=== PATIENT | male | born 1945 | race Caucasian/White ===

== ENCOUNTER 2022-02-13 16:52 | Observation (INO) ==
[2022-02-13 17:40] LABS: Basophils % 0.3 %; Eosinophils % 0.3 %; Hematocrit 32.7 % (37.5-50.1); Hemoglobin 10.6 g/dL (12.9-16.9); Immature Granulocytes % 0.3 % (0-4); Lymphocytes # 0.7 K/mcL (0.6-4.6); Mean Corpuscular HGB Conc 32.4 g/dL (31.6-35.5); Mean Corpuscular Volume 86.3 fL (83.0-100.0); Mean Platelet Volume 9.3 fL (9.4-12.4); Monocytes # 0.9 K/mcL (0.0-1.3); Neutrophils # 6.3 K/mcL (1.6-8.9); Platelet Count 216 K/mcL (140-400); Red Blood Count 3.79 M/mcL (4.19-5.50); Red Cell Distribution Width 14.7 % (11.5-14.5); Segmented Neutrophils % 79.1 %
[2022-02-13] MEDS ORDERED: Naloxone 0.4 MG/ML INJ IVP PRN (17:44)
[2022-02-13] MEDS ORDERED: Ondansetron 4 MG/2 ML VIAL IVP PRN (17:44)
[2022-02-13] MEDS ORDERED: D5% in Water 1,000 ML IVC PRN (17:44)
[2022-02-13] MEDS ORDERED: Dextrose 4 GM Chewable Tablets PO PRN ×2 (17:44)
[2022-02-13] MEDS ORDERED: Acetaminophen 325 MG TABLET PO PRN (17:44)
[2022-02-13 17:55] LABS: Albumin 3.4 g/dL (3.5-5.7); Albumin/Globulin Ratio 1.3 (1.1-2.2); Bilirubin,Direct 0.2 mg/dL (0.0-0.2); Bilirubin,Indirect 0.5 mg/dL (0.0-1.0); Bilirubin,Total 0.7 mg/dL (0.3-1.0); Calcium 8.3 mg/dL (8.6-10.3); Globulin 2.6 g/dL (2.4-3.5); Potassium 3.5 mEq/L (3.5-5.1)
[2022-02-13] MEDS: *HR* Dextrose 50 % in Water (Syg) 50 ML SYRINGE IVP PRN ×2 (18:14→23:43)
[2022-02-13] MEDS: *HR* Ticagrelor 90 MG TABLET PO SCH (21:26)
[2022-02-13] MEDS: Metoprolol 100 MG TABLET PO SCH (21:26)
[2022-02-13] MEDS: tiZANidine 4 MG TABLET PO SCH (21:26)
[2022-02-13] MEDS: metroNIDAZOLE 500 MG TABLET PO SCH (21:26)
[2022-02-14] MEDS ORDERED: D10% in Water 500 ML IVC SCH (02:45)
[2022-02-14 07:46] VITALS: TEMP 98.2
[2022-02-14 08:01] LABS: Hematocrit 30.6 % (37.5-50.1); Hemoglobin 9.6 g/dL (12.9-16.9); Mean Corpuscular HGB Conc 31.4 g/dL (31.6-35.5); Mean Corpuscular Hemoglobin 27.3 pg (28.0-33.3); Mean Corpuscular Volume 86.9 fL (83.0-100.0); Mean Platelet Volume 9.4 fL (9.4-12.4); Platelet Count 220 K/mcL (140-400); Red Blood Count 3.52 M/mcL (4.19-5.50); Red Cell Distribution Width 14.8 % (11.5-14.5); White Blood Count 10.4 K/mcL (4.3-11.1)
[2022-02-14] MEDS: Metoprolol 100 MG TABLET PO SCH (08:03)
[2022-02-14 08:18] LABS: Calcium 7.9 mg/dL (8.6-10.3); Magnesium 1.9 mg/dL (1.6-2.6); Potassium 3.5 mEq/L (3.5-5.1)
[2022-02-14] MEDS ORDERED: hydroCHLOROthiazide 25 MG TABLET PO SCH (09:00)
[2022-02-14] MEDS ORDERED: Aspirin Enteric Coated 81 MG Tablet PO SCH (09:00)
[2022-02-14] MEDS ORDERED: lisinopriL 10 MG TABLET PO SCH (09:00)
[2022-02-14] MEDS ORDERED: amLODIPine 5 MG TABLET PO SCH (09:00)
[2022-02-14 10:12] VITALS: PULSE 56
[2022-02-14] MEDS: *HR* Ticagrelor 90 MG TABLET PO SCH (10:16)
[2022-02-14] MEDS: tiZANidine 4 MG TABLET PO SCH ×2 (10:17→14:38)
[2022-02-14] MEDS: metroNIDAZOLE 500 MG TABLET PO SCH (10:17)
[2022-02-14 12:00] VITALS: BP 130/59; RESP 20; O2SAT 98
== END 2022-02-14 15:15 | disposition home or self-care (01) ==
LOC: EMEROOPIK 16:52 → INPPIK 16:52
PROVIDERS: ADMIT Internal Medicine; ATTEND Internal Medicine